=== PATIENT | male | born 1955 | race Caucasian/White ===

== ENCOUNTER → 2024-10-23 | Outpatient (CLI) | payer MEDICARE, MEDICAID, SELFPAY ==
--- NOTE | 2024-10-23 | XR_ITS ---
Examination: AP pelvis single view TECHNIQUE: AP supine pelvis single view Exam date and time: October 23, 2024 1310 hours INDICATIONS: Patient fell today with into the pelvis pelvic pain FINDINGS: No acute hip fractures or hip dislocations Bones of the pelvis intact Orthopedic hardware left hip IMPRESSION: No acute fracture
--- NOTE | 2024-10-23 11:16 | XR_ITS ---
Examination: Sacrum fractures 3 views TECHNIQUE: AP inclined AP lateral sacrum and coccyx 3 views Exam date and time: October 23, 2024 1315 hours INDICATIONS: Patient fell today with injury to the tailbone, tailbone pain. FINDINGS: Symmetrical sacral foramina Moderate narrowing hip joints No acute sacral or coccygeal fracture noted IMPRESSION: No acute sacral or coccygeal fracture noted
== END | disposition home or self-care (01) ==
LOC: CDIM 10:59
PROVIDERS: PCP Family Medicine; Referring Provider Family Medicine; Visit Provider Family Medicine
DX: S39.92XA Unspecified injury of lower back, initial encounter (principal); W19.XXXA Unspecified fall, initial encounter
CPT/HCPCS: 72170; 72220

== ENCOUNTER → 2025-10-07 | Outpatient (CLI) | payer MEDICARE, MEDICAID, SELFPAY | END | disposition home or self-care (01) | LOC: SLDO 14:02 | PROVIDERS: Referring Provider Family Medicine; Visit Provider Family Medicine | DX: N39.0 Urinary tract infection, site not specified (principal) | CPT/HCPCS: 87077; 87086; 87186 ==